=== PATIENT | female | born 1950 | race Caucasian/White ===

== ENCOUNTER 2019-08-24 13:06 | Inpatient (IN) | payer MEDICARE, BC ==
[~2019-08-24] VITALS: Ht 160 cm; Wt 50.7 kg
[2019-08-24 13:22] VITALS: BP 102/68
[2019-08-24 14:24] LABS: ABSOLUTE BASOPHILS 0.1 thou/uL (0.0-0.2); ABSOLUTE EOSINOPHILS 0.2 thou/uL (0.0-0.7); ABSOLUTE LYMPHOCYTES 2.4 thou/uL (0.8-5.3); ABSOLUTE NEUTROPHILS 15.6 thou/uL (1.6-8.1); BASOPHILS 0.5 %; EOSINOPHILS 0.9 %; HEMATOCRIT 37.7 % (37.0-47.0); HEMOGLOBIN 13.3 gm/dL (12.0-15.0); LYMPHOCYTES 12.2 %; MCH 32.3 pg (26.0-34.0); MCHC 35.2 g/dL (28.0-37.0); MONOCYTES 5.2 %; MPV 7.1 fl. (7.2-11.1); NUCLEATED RBCS 0 /100WBC; PLATELET COUNT* 370 thou/uL (150-400); POLYS 81.2 %; RDW-CV 12.2 % (10.5-14.5); WBC 19.3 thou/uL (4.0-11.0)
[2019-08-24 14:33] LABS: CALCIUM 8.6 mg/dL (8.5-10.1); CREATININE 2.2 mg/dL (0.6-1.3)
[2019-08-24 14:36] LABS: POTASSIUM 2.9 mmol/L (3.5-5.1)
[2019-08-24 14:37] LABS: ALBUMIN 3.1 g/dL (3.4-5.0); TOTAL BILIRUBIN 0.7 mg/dL (<0.1-1.0); TOTAL PROTEIN 7.1 g/dL (6.4-8.2)
[2019-08-24] MEDS ORDERED: ASA81BEC PO (14:38)
[2019-08-24] MEDS ORDERED: LISINOPRIL-HCT1 EAC2 PO (14:38)
[2019-08-24] MEDS ORDERED: NORVASC 2.5 MG2.5 M1 PO (14:38)
[2019-08-24 15:05] LABS: INFLUENZA A ANTIGEN Negative (Negative); INFLUENZA B ANTIGEN Negative (Negative)
[2019-08-24 16:59] VITALS: BP 105/39
[2019-08-24 17:17] VITALS: BP 120/46
[2019-08-24] MEDS ORDERED: LISINOPRIL-HCT1 EAC1 PO (17:52)
--- NOTE | 2019-08-24 18:41 | NUR ---
PT ADMITTED TO ROOM 226 VIA CART FROM ED AT APPROXIMATELY 1710. ADMISSION ASSESSMENT AND HISTORY COMPLETED-REFER TO CHARTING. SEPSIS SCREENING NEGATIVE. HOME MEDICATIONS RECONCILED. PT ORIENTED TO ROOM AND CALL LIGHT. A&0X4, DENIES ANY PAIN OR SHORTNESS OF BREATH AT THIS TIME. PT STATES SHE HAS HAD DIARRHEA FOR 2 WEEKS NOW. PT STATES HER LAST BOWEL MOVEMENT WAS THIS MORNING- NONE SINCE ADMISSION TO HOSPITAL. PT PLACED IN SPECIAL CONTACT ISOLATION TO RULE OUT CDIFF. STOOL SAMPLE NEEDS TO BE OBTAINED. TRACING SR ON THE RELIGIOUS LEADER. ON RA SAT UPPER 90'S. IVF. PT POTASSIUM 2.9- IV POTASSIUM INFUSING AT THIS TIME. PT UP WITH SBA TO BATHROOM. PT ON CLEAR LIQUID DIET AT THIS TIME-TOLERATING WELL. MEDICATIONS PER OCT. PT REPOSITIONS SELF. HOURLY ROUNDING OBSERVED. BED IN LOW POSITION. CALL LIGHT WITHIN REACH. WILL CONTINUE PLAN OF CARE.
[2019-08-24 19:15] VITALS: BP 111/38
[2019-08-25] VITALS: BP 107/47
--- NOTE | 2019-08-25 03:22 | NUR ---
ASSUMED CARE OF PT AT 1900. PT IS ALERT AND ORIENTED. VSS. PERRLA. NO COMPLAINTS OF PAIN. PT IS HAVING MULTIPLE LOOSE STOOLS. CDIFF SAMPLE SENT TO LAB. PT IS IN SINUS RYTHM ON THE TELEMETRY. PT IS RESTING COMFORTABLY IN BED. RESPIRATIONS ARE EVEN AND NONLABORED. WILL CONTINUE TO MONITOR PT.
[2019-08-25 04:00] VITALS: BP 93/35
[2019-08-25 04:47] LABS: ABSOLUTE EOSINOPHILS 0.3 thou/uL (0.0-0.7); ABSOLUTE LYMPHOCYTES 2.4 thou/uL (0.8-5.3); ABSOLUTE NEUTROPHILS 9.7 thou/uL (1.6-8.1); BASOPHILS 0.2 %; EOSINOPHILS 2.4 %; HEMATOCRIT 32.1 % (37.0-47.0); LYMPHOCYTES 17.8 %; MCH 32.5 pg (26.0-34.0); MONOCYTES 7.1 %; NUCLEATED RBCS 0 /100WBC; PLATELET COUNT* 303 thou/uL (150-400); POLYS 72.5 %; RBC 3.45 mil/uL (4.20-5.00); RDW-CV 12.1 % (10.5-14.5); WBC 13.4 thou/uL (4.0-11.0)
[2019-08-25 05:11] LABS: HEMOGLOBIN 11.2 gm/dL (12.0-15.0)
[2019-08-25 05:23] LABS: CALCIUM 7.5 mg/dL (8.5-10.1); CREATININE 1.5 mg/dL (0.6-1.3)
[2019-08-25 05:24] LABS: POTASSIUM 4.3 mmol/L (3.5-5.1)
[2019-08-25 08:00] VITALS: BP 93/40
--- NOTE | 2019-08-25 10:00 | EKG ---
[place] [address] ELECTROCARDIOGRAM REPORT Name: IZABELLA SONI Room: [address] ADM IN [facility]#: [id number] Admission: 08/24/19 Attend Phys: Mart Glass MD Discharge: Date of : 48 Report #: [id number] THIS REPORT FOR: //name// [facility] ED Test Date: 2019-08-24 Test Time: 14:04:26 Pat Name: IZABELLA SONI Department: Room: [facility] Gender: F Crystal Report Developer: MAIA : 1950 Requested By: Melly Mensah Order Number: [id number] MD: Joe Umana Measurements Intervals [place]amond Rate: 84 P: 72 [place]: 185 QRS: 81 QRSD: 98 T: 30 QT: 372 QTc: 440 Interpretive Statements Sinus rhythm Borderline right axis deviation Probable left ventricular hypertrophy No previous ECG available for comparison Electronically Signed On 08-25-2019 9:59:40 [employer] by Joe Umana [email or web address] <ELECTRONICALLY SIGNED> By: Joe Umana MD, [facility] 08/25/19 0959 1404 1404 Joe Umana MD, FACC /EPI
--- NOTE | 2019-08-25 12:49 | NUR ---
ASSUMED CARE OF PT AT 0730. PT RESTING IN BED. VISITOR AT BEDSIDE. PT A&0X4, DENIES ANY PAIN OR SHORTNESS OF BREATH AT THIS TIME. PT IN SPECIAL CONTACT ISOLATION TO RULE OUT CDIFF. PT HAVING DIARRHEA, CDIFF PENDING. PT TRACING SR ON THE ENVIRONMENTAL SAMPLER THIS AM-MADE MED SURG STATUS LATE MORNING. ON RA SAT UPPER 90'S. PT UP WITH SBA TO BATHROOM. IVF. BLOOD PRESSURE SOFT THIS AM 90'S/50'S- AM BLOOD PRESSURE MEDICATIONS HELD. POTASSIUM BETTER THIS AM-4.3. PT DIET ADVANCED TO REGULAR-TOLERATING WELL. PT GOAL FOR TODAY IS AWAIT CDIFF RESULTS, INCREASE ACTIVITY, IV FLUIDS AND IV ANTIBIOTICS AND MAINTAIN SBP GREATER THAN 100. AM ASSESSMENT CHARTED. MEDICATIONS PER OCT. PT REPOSITIONS SELF. HOURLY ROUNDING OBSERVED. BED IN LOW POSITION. CALL LIGHT WITHIN REACH. WILL CONTINUE PLAN OF CARE.
[2019-08-25 15:14] VITALS: BP 113/47
--- NOTE | 2019-08-25 16:46 | NUR ---
Pt on phone and requested that CM come back later, CM to f/u
[2019-08-25 18:29] VITALS: BP 114/54
--- NOTE | 2019-08-25 19:02 | NUR ---
NO ACUTE CHANGES THROUGHOUT SHIFT. REFER TO CHARTING. PT MED SURG STATUS. PT TOLERATING REGULAR DIET. STOOL SAMPLE NEEDS TO BE OBTAINED FOR CDIFF. PROGRESSING TOWARDS GOALS. IN SPECIAL PRECAUTIONS TO RULE OUT CDIFF. MEDICATIONS PER MAR. PT REPOSITIONS SELF. HOURLY ROUNDING OBSERVED. BED IN LOW POSITION. CALL LIGHT WITHIN REACH. WILL CONTINUE PLAN OF CARE.
--- NOTE | 2019-08-25 19:21 | NUR ---
PT TO TRANSFER TO ROOM 316. REPORT CALLED TO AMBER CHAUDHARY. PT TRANSFERRED VIA BED WITH ALL BELONGINGS AND CHART.
[2019-08-25 21:00] VITALS: BP 97/41
[2019-08-26] VITALS: BP 95/44
--- NOTE | 2019-08-26 07:08 | NUR ---
PATIENT WAS A TELE TRANSFER AT SHIFT CHANGE. PATIENT SLEPT PART OF THE NIGHT. IV FLUIDS AND ANTIBIOTICS WERE GIVEN ORDERED. STOOL WAS SENT FOR CDIFF AND IS STILL PENDING IN THE LAB. WILL CONTINUE TO MONITOR.
[2019-08-26 08:33] VITALS: BP 107/57
[2019-08-26 15:30] VITALS: BP 109/49
[2019-08-26 15:34] LABS: ABSOLUTE BASOPHILS 0.1 thou/uL (0.0-0.2); ABSOLUTE EOSINOPHILS 0.1 thou/uL (0.0-0.7); ABSOLUTE LYMPHOCYTES 1.9 thou/uL (0.8-5.3); ABSOLUTE MONOCYTES 0.7 thou/uL (0.0-1.2); ABSOLUTE NEUTROPHILS 6.8 thou/uL (1.6-8.1); BASOPHILS 1.3 %; EOSINOPHILS 1.3 %; HEMATOCRIT 28.8 % (37.0-47.0); HEMOGLOBIN 10.1 gm/dL (12.0-15.0); LYMPHOCYTES 19.6 %; MCH 32.8 pg (26.0-34.0); MCHC 35.2 g/dL (28.0-37.0); MCV 93.2 fL (80.0-100.0); MONOCYTES 7.2 %; MPV 7.1 fl. (7.2-11.1); NUCLEATED RBCS 0 /100WBC; PLATELET COUNT* 267 thou/uL (150-400); POLYS 70.6 %; RBC 3.09 mil/uL (4.20-5.00); RDW-CV 12.2 % (10.5-14.5); WBC 9.7 thou/uL (4.0-11.0)
[2019-08-26 15:44] LABS: ALBUMIN 2.3 g/dL (3.4-5.0); CREATININE 1.1 mg/dL (0.6-1.3); POTASSIUM 3.3 mmol/L (3.5-5.1); TOTAL BILIRUBIN 0.2 mg/dL (<0.1-1.0); TOTAL PROTEIN 5.1 g/dL (6.4-8.2)
--- NOTE | 2019-08-26 17:22 | NUR ---
ASSUMED CARE AT 0730. [facility] ORIENTED [facility]. HX OF COLITIS. PT. IN CONTACT ISOLATIONN FOR POSSIBLE DX C DIFF SPECIMEN WAS SENT YESTERDAY. TRANSFERS WITH SBA AMBULATES IN ROOM. IV INFUSING AT 100CCS HR. AND IS ON FLAGYL IV AND VANCO PO. APPETITE GOOD AT LUNCH MEAL. DENIES PAIN IS CONCERNED WITH HER BP RUNNING LOW. DENIES DIZZINESS. TAKING FLUIDS WELL NO NAUSEA STATED 4 STOOLS TODAY. ONE VISUALIZED WAS GRAINY LOOKING BROWN SMALL AMT. DR. BECERRA ROUNDED.
[2019-08-26 20:00] VITALS: BP 103/59
--- NOTE | 2019-08-27 06:26 | NUR ---
PATIENT SLEPT MOST OF THE NIGHT. IV FLUIDS CONTINUE TO INFUSE ORDERED. PATIENT HAD NO COMPLAINTS OF PAIN OR NAUSEA. PATIENT REMAINS ON PRECAUTIONS FOR POSSIBLE CDIFF. WILL CONTINUE TO MONITOR.
[2019-08-27 06:30] LABS: ABSOLUTE BASOPHILS 0.1 thou/uL (0.0-0.2); ABSOLUTE EOSINOPHILS 0.1 thou/uL (0.0-0.7); ABSOLUTE LYMPHOCYTES 2.3 thou/uL (0.8-5.3); ABSOLUTE MONOCYTES 0.6 thou/uL (0.0-1.2); ABSOLUTE NEUTROPHILS 3.2 thou/uL (1.6-8.1); BASOPHILS 0.9 %; EOSINOPHILS 2.2 %; HEMATOCRIT 28.3 % (37.0-47.0); HEMOGLOBIN 9.8 gm/dL (12.0-15.0); LYMPHOCYTES 36.7 %; MCH 32.3 pg (26.0-34.0); MCHC 34.8 g/dL (28.0-37.0); MCV 92.8 fL (80.0-100.0); MONOCYTES 9.6 %; MPV 7.2 fl. (7.2-11.1); NUCLEATED RBCS 0 /100WBC; PLATELET COUNT* 268 thou/uL (150-400); POLYS 50.6 %; RBC 3.05 mil/uL (4.20-5.00); RDW-CV 12.2 % (10.5-14.5); WBC 6.3 thou/uL (4.0-11.0)
[2019-08-27 06:45] LABS: ALBUMIN 2.2 g/dL (3.4-5.0); CALCIUM 7.2 mg/dL (8.5-10.1); CREATININE 0.9 mg/dL (0.6-1.3); POTASSIUM 3.6 mmol/L (3.5-5.1); TOTAL BILIRUBIN 0.2 mg/dL (<0.1-1.0)
[2019-08-27 08:15] VITALS: BP 119/48
[2019-08-27 16:00] VITALS: BP 135/65
--- NOTE | 2019-08-27 18:10 | NUR ---
PATIENT RESTING IN CHAIR. PATIENT IS UP AD LAN IN ROOM. PATIENT DENIES ANY PAIN. PATIENT STATES SHE IS HAVING MORE SOLID BOWEL MOVEMENTS. PATIENT HAS GOOD APPETITE AND HAS HAD ENSURE SUPPLEMENTS. PATIENT DENIES ANY NEEDS AT THIS TIME. CALL LIGHT WITHIN REACH. WILL CONTINUE TO MONITOR.
[2019-08-27 21:00] VITALS: BP 139/70
--- NOTE | 2019-08-28 06:15 | NUR ---
PATIENT SLEPT MOST OF THE NIGHT. IV REMAINS SALINE LOCKED. PATIENT HAD NO COMPLAINTS OF PAIN. PATIENT SHOULD DISCHARGE HOME TODAY. WILL CONTINUE TO MONITOR.
[2019-08-28 08:15] VITALS: BP 138/75
[2019-08-28] MEDS ORDERED: FIRVANQ50 MG/1 ML PO (09:07)
[2019-08-28] MEDS ORDERED: FLORANEX TABLE1 EACH PO (09:07)
[2019-08-28 10:15] VITALS: BP 139/70
[2019-08-28] MEDS ORDERED: CIPRO500 M1 PO (10:25)
[2019-08-28] MEDS ORDERED: FLAGYL500 M1 PO (10:25)
--- NOTE | 2019-08-28 12:40 | NUR ---
PATIENT DISCHARGED TO HOME. DISCHARGE PAPERS REVIEWED AND SIGNED. PRESCRIPTIONS SENT TO PHARMACY AND INFORMATION SHEETS GIVEN. IV REMOVED. PATIENT DENIES ANY FURTHER NEEDS. PATIENT TAKEN BY WHEELCHAIR TO EXIT. LEFT WITH SISTER.
== END 2019-08-28 12:40 | disposition home or self-care (01) | DRG 371 ==
LOC: M.ERS 13:06 → M.3W 16:01 → M.2W 16:01 → M.TBA-ER 16:01 → M.2W 17:08 → M.3W 08-25 19:31
PROVIDERS: Family Medicine; Physician Assistant; ADMIT Internal Medicine
DX: A04.72 Enterocolitis due to Clostridium difficile, not specified as recurrent (principal); E43 Unspecified severe protein-calorie malnutrition; N17.0 Acute kidney failure with tubular necrosis; R65.11 Systemic inflammatory response syndrome (SIRS) of non-infectious origin with acute organ dysfunction; Z68.1 Body mass index [BMI] 19.9 or less, adult; I10 Essential (primary) hypertension; M81.0 Age-related osteoporosis without current pathological fracture; E87.6 Hypokalemia; D72.829 Elevated white blood cell count, unspecified; E86.0 Dehydration; Z23 Encounter for immunization; Z79.899 Other long term (current) drug therapy